=== PATIENT | male | born 1990 | race Caucasian/White ===

== ENCOUNTER 2019-09-05 00:44 | Emergency (ER) | payer OTHER ==
--- NOTE | 2019-09-05 01:28 | RADIOLOGY REPORT (SQ) ---
CLINICAL HISTORY: bone pain COMPARISON: None. TECHNIQUE: XR CALCANEUS 2 VIEWS 09/05/2019 12:00 AM CDT FINDINGS: There is no fracture. Joint spaces are preserved. Soft tissues are unremarkable. IMPRESSION: No acute osseous findings.
--- NOTE | 2019-09-05 02:33 | ER Document Report ---
HPI - HPI Time Seen by Provider: 09/05/19 02:11 Pain Level: 4 Context: Patient is a 29-year-old male that comes emergency department for chief complaint of injury to the right heel. He states that he was hopping off the back of the bed of a truck in flip-flops when he landed hard on his heel. He states initially had pain but then seemed like it was resolving. He states that he was sitting for a little while, attempted to step on the foot again and had sharp pain. He also reports some swelling at the bottom of his foot. He denies any numbness, he denies any other locations of pain, he denies any other injuries. He denies any past medical history. Past Medical History - General Information source: Patient - Social History Smoking Status: Current Every Day Smoker Frequency of alcohol use: None Drug Abuse: None Lives with: Family Family History: Reviewed & Not Pertinent Patient has homicidal ideation: No - Immunizations Immunizations up to date: Yes Hx Diphtheria, Pertussis, Tetanus Vaccination: Yes Vertical Provider Document - CONSTITUTIONAL General Appearance: WD/WN, No Apparent Distress - INFECTION CONTROL TRAVEL OUTSIDE OF THE [place] IN LAST 30 DAYS: No - HEENT HEENT: Atraumatic, Normal ENT Exam, Normocephalic - NECK Neck: Normal Inspection - RESPIRATORY Respiratory: Breath Sounds Normal, No Respiratory Distress - CARDIOVASCULAR Cardiovascular: Regular Rate, Regular Rhythm - GI/ABDOMEN Gastrointestinal: Abdomen Soft, Abdomen Non-Tender - BACK Back: Normal Inspection - MUSCULOSKELETAL/EXTREMETIES Musculoskeletal/Extremeties: MAEW, FROM, Tender - There is tenderness over the left heel and at the insertion point of the plantar tendon at the heel most specifically. There is no overt swelling but there is pain with ambulation. The ankle is nontender, the remaining foot is nontender, there is no sign of trauma. Normal capillary refill and sensation, normal dorsalis pedis, normal lower extremity exam otherwise. - NEURO Level of Consciousness: Awake, Alert, Appropriate Motor/Sensory: No Motor Deficit, No Sensory Deficit - DERM Integumentary: Warm, Dry, No Rash Course - Re-evaluation Re-evalutation: I did review x-ray from triage, this was mainly of the calcaneus. However this is specifically where patient's tenderness is. This was negative for acute findings. No other concerning findings on exam. Patient has significant pain after resting and placing his foot on the ground, pain is mainly at the plantar tendon insertion, I suspect sprain of this with some mild soft tissue swelling. Provided with crutches and Reilly wrap, discussed care, follow-up, return precautions. Patient states understanding and agreement. Procedures - Immobilization Left ankle/foot Pre-Proc Neuro Vasc Exam: Normal Immobilizer type: Reilly wrap Performed by: PCT Post-Proc Neuro Vasc Exam: Normal Alignment checked and good: Yes Discharge - Discharge Clinical Impression: Pain of left heel Injury of left heel Qualifiers: Encounter type: initial encounter Qualified Code(s): S99.922A - Unspecified injury of left foot, initial encounter Condition: Stable Disposition: HOME, SELF-CARE Additional Instructions: The x-ray does not show a fracture, your exam is consistent with soft tissue swelling and injury to the plantar tendon. I recommend crutches, elevation, wrapping the foot, icing 3-4 times a day for 10 to 15 minutes, and the anti-inflammatory. Perform this for the next several days. Symptoms should resolve. Resume normal activity after symptoms resolved. Follow-up with primary care. Return for any concerning symptoms including severe worsening swelling or pain. Prescriptions: Naproxen 500 mg PO BID PRN #20 tablet PRN Reason: Forms: Return to Work Referrals: [facility] [Primary [facility] Provider] - Follow up as needed
[2019-09-05 03:32] VITALS: BP 132/78
== END 2019-09-05 02:55 | disposition home or self-care (01) ==
LOC: ER 00:44
DX: S99.921A Unspecified injury of right foot, initial encounter (principal); W17.89XA Other fall from one level to another, initial encounter; F17.200 Nicotine dependence, unspecified, uncomplicated
CPT/HCPCS: 99283